=== PATIENT | female | born 1985 | race Caucasian/White ===

== ENCOUNTER 2021-11-23 13:58 | Emergency (ER) | payer OTHER ==
[2021-11-23 15:42] LABS: BASOPHIL 0.8 % (0-2); EOSINOPHIL 3.8 % (0-5); HCT 40.8 % (37.0-47.0); HGB 13.4 g/dl (12.5-16.0); LYMPHOCYTE 25.1 % (15-48); MCH 29.5 pg (25.0-31.0); MCHC 32.8 g/dL (32.0-36.0); MCV 89.9 fL (78.0-100.0); MONOCYTE 5.1 % (0-12); MPV 10.7 fL (6.0-9.5); NEUTROPHIL 64.9 % (41-80); NRBC 0; PLT 208 K/uL (150-400); RBC 4.54 M/uL (4.20-5.40); RDW 12.1 % (11.5-14.0); WBC 7.9 K/uL (4.0-10.5)
[2021-11-23 15:42] LABS: BILIRUBIN NEGATIVE (NEGATIVE); BLOOD NEGATIVE Ery/uL (NEGATIVE); CLARITY CLEAR (CLEAR); COLOR YELLOW (YELLOW); GLUCOSE (U) NORMAL (NORMAL); LEUKOCYTES TRACE Leu/uL (NEGATIVE); NITRITE NEGATIVE (NEGATIVE); PROTEIN NEGATIVE (NEGATIVE); UROBILINOGEN 0.2 mg/dL (0.2-1.0)
[2021-11-23 15:53] LABS: BACTERIA TRACE; URINARY WBC RARE
[2021-11-23 16:03] LABS: BILIRUBIN - TOTAL 0.4 mg/dL (0.2-1.0); BUN/CREAT RATIO (CALC) 11.1 RATIO; CREATININE 0.81 mg/dL (0.51-0.95); GLOBULIN (CALCULATION) 2.9 g/dL; POTASSIUM 3.9 mmol/L (3.5-5.1); TOTAL PROTEIN 6.9 g/dL (6.4-8.2)
[2021-11-23] MEDS ORDERED: BENTYL10 MG PO (18:26)
[2021-11-23] MEDS ORDERED: ONDANSETRON HCL4 MG PO (18:26)
== END 2021-11-23 18:51 | disposition home or self-care (01) ==
LOC: FER 13:58
PROVIDERS: Nurse Practitioner Family
DX: R10.84 Generalized abdominal pain (principal); R11.2 Nausea with vomiting, unspecified; E11.9 Type 2 diabetes mellitus without complications; Z28.310 Unvaccinated for COVID-19; Z88.0 Allergy status to penicillin; Z88.1 Allergy status to other antibiotic agents; Z79.84 Long term (current) use of oral hypoglycemic drugs; Z79.899 Other long term (current) drug therapy
CPT/HCPCS: 36415; 80053; 81001; 82150; 83690; 85025; J2270; J2405; J7030